=== PATIENT | female | born 1945 | race Caucasian/White ===

== ENCOUNTER 2022-02-08 17:09 | Inpatient (IN) | payer OTHER, MEDICARE ==
[~2022-02-08] VITALS: Ht 154.9 cm; Wt 93.0 kg
[2022-02-08] MEDS ORDERED: NS 500 ML IV ONE (17:25)
[2022-02-08 17:35] LABS: MEAN CORPUSCULAR HEMOGLOBIN 32.4 pg (27.0-33.0); MEAN CORPUSCULAR HGB CONC 32.4 g/dl (32.0-36.5); RED BLOOD COUNT 1.73 10^6/uL (4.00-5.40); WHITE BLOOD COUNT 11.1 10^3/uL (4.0-10.0)
[2022-02-08 17:36] LABS: BASO % 0.2 % (0.0-1.0); EOS # 0.2 10^3/uL (0.0-0.5); EOS % 1.5 % (0.0-3.0); LYMPH # 1.3 10^3/uL (1.5-5.0); LYMPH % 11.6 % (24.0-44.0); MONO # 0.6 10^3/uL (0.0-0.8); MONO % 5.3 % (2.0-8.0); NEUTROPHILS # 8.8 10^3/uL (1.5-8.5); NEUTROPHILS % 79.2 % (36.0-66.0); PLATELET COUNT, AUTOMATED 179 10^3/uL (150-450)
[2022-02-08 17:39] LABS: HEMATOCRIT 17.3 % (36.0-47.0); HEMOGLOBIN 5.6 g/dl (12.0-15.5)
[2022-02-08] MEDS ORDERED: ISOVUE-370 76% 100ML VIAL As Ordered ONE (17:46)
[2022-02-08 17:47] LABS: INR 1.93; PROTHROMBIN TIME 22.5 SECONDS (12.7-14.5)
[2022-02-08 17:48] LABS: PARTIAL THROMBOPLASTIN TIME 36.4 SECONDS (25.9-37.0)
[2022-02-08] MEDS ORDERED: TRANEXAMIC ACID INJection 1,000 MG in NS 100 ML IV ONE ×2 (17:50→20:00)
[2022-02-08 17:53] LABS: ABG BASE EXCESS -2.6 (-2.0-2.0); ABG HCO3 21.2 MEQ/L (22.0-26.0); ABG O2 SATURATION 97.4 % (95.0-99.0); ABG PARTIAL PRESSURE CO2 32.8 mmHg (35.0-45.0); ABG PARTIAL PRESSURE O2 98.9 mmHg (75.0-100.0); ABG STANDARD HCO3 22.3 MEQ/L (22.0-26.0); ABG TOTAL CO2 22.2 MEQ/L (23.0-31.0); ABG pH (ARTERIAL) 7.428 UNITS (7.350-7.450)
[2022-02-08] MEDS ORDERED: CALCIUM CHLORIDE 10% 1 GM/10 ML SYR IV ONE (17:55)
[2022-02-08 17:59] LABS: CK-MB VALUE MASS 1.4 NG/ML (<3.6); MB/CK RELATIVE INDEX 2.15 (< OR =4)
[2022-02-08 18:12] LABS: ALBUMIN 1.1 GM/DL (3.2-5.2); ALT/SGPT 8 U/L (12-78); AMYLASE 15 U/L (25-115); BILIRUBIN,DIRECT < 0.1 MG/DL (0.0-0.2); BILIRUBIN,TOTAL < 0.1 MG/DL (0.2-1.0); BLOOD UREA NITROGEN 9 MG/DL (7-18); CALCIUM LEVEL < 5.0 MG/DL (8.8-10.2); CARBON DIOXIDE LEVEL 9 MEQ/L (21-32); CHLORIDE LEVEL 138 MEQ/L (98-107); CREATININE FOR GFR < 0.15 MG/DL (0.55-1.30); ETHYL ALCOHOL (ETHANOL) < 0.003 % (0.000-0.010); GLOMERULAR FILTRATION RATE > 60.0 (>39); GLUCOSE, FASTING 76 MG/DL (70-100); LIPASE 75 U/L (73-393); POTASSIUM SERUM 1.7 MEQ/L (3.5-5.1); SODIUM LEVEL 157 MEQ/L (136-145); TOTAL PROTEIN 2.1 GM/DL (6.4-8.2)
[2022-02-08 18:29] LABS: BASO % 0.2 % (0.0-1.0); EOS # 0.2 10^3/uL (0.0-0.5); EOS % 1.1 % (0.0-3.0); HEMATOCRIT 26.6 % (36.0-47.0); LYMPH # 0.9 10^3/uL (1.5-5.0); LYMPH % 6.1 % (24.0-44.0); MEAN CORPUSCULAR HEMOGLOBIN 31.6 pg (27.0-33.0); MEAN CORPUSCULAR HGB CONC 32.3 g/dl (32.0-36.5); MEAN CORPUSCULAR VOLUME 97.8 fl (80.0-96.0); MONO # 0.8 10^3/uL (0.0-0.8); MONO % 5.5 % (2.0-8.0); NEUTROPHILS # 12.9 10^3/uL (1.5-8.5); NEUTROPHILS % 85.1 % (36.0-66.0); PLATELET COUNT, AUTOMATED 215 10^3/uL (150-450); RED BLOOD COUNT 2.72 10^6/uL (4.00-5.40); WHITE BLOOD COUNT 15.1 10^3/uL (4.0-10.0)
[2022-02-08 18:32] LABS: RSV AMPLIFICATION NEGATIVE (NEGATIVE)
[2022-02-08 18:35] LABS: HEMOGLOBIN 8.6 g/dl (12.0-15.5)
[2022-02-08 18:48] LABS: CALCIUM LEVEL 7.3 MG/DL (8.8-10.2); CREATININE FOR GFR 0.99 MG/DL (0.55-1.30); GLOMERULAR FILTRATION RATE 58.1 (>39); POTASSIUM SERUM 3.7 MEQ/L (3.5-5.1)
[2022-02-08 19:00] VITALS: BP 103/57
[2022-02-08 19:16] VITALS: BP 103/50
[2022-02-08 19:25] VITALS: BP 103/50
[2022-02-08] MEDS ORDERED: fentaNYL 100 MCG/2 ML INJECTION IV ONE (20:25)
[2022-02-08] MEDS ORDERED: BOOSTRIX/ADACEL VACCINE (DIPHTH/PERTUSS/ACELL/TETANUS) 0.5ML SYR IM.IMMUN ONE (20:25)
[2022-02-08] MEDS ORDERED: ONDANSETRON 4MG 2ML VIAL IV ONE (20:25)
[2022-02-08] MEDS ORDERED: ACETAMINOPHEN TAB 650MG DOSE (2X325MG) PO PRN (21:20)
[2022-02-08] MEDS ORDERED: ONDANSETRON 4MG 2ML VIAL IV PRN (21:20)
[2022-02-08] MEDS ORDERED: KETOROLAC 30 MG/ML 1ML VIAL IV PRN (21:20)
[2022-02-08] MEDS ORDERED: MORPHINE 2 MG/ML 1ML VIAL IV PRN (21:20)
[2022-02-08] MEDS ORDERED: NORCO, ANEXSIA 5/325MG TABLET (HYDROcodone/ACETAMINOPHEN) PO PRN (21:20)
[2022-02-08] MEDS ORDERED: MORPHINE 4 MG/ML 1ML VIAL/SYRINGE IV PRN (21:20)
[2022-02-08] MEDS ORDERED: FAMO1TAB11 PO (21:46)
[2022-02-08] MEDS ORDERED: METR0.7533 TOP (21:46)
[2022-02-08] MEDS ORDERED: FERR150C PO (21:46)
[2022-02-08] MEDS ORDERED: CARB1TAB20 PO (21:46)
[2022-02-08] MEDS ORDERED: CLOP75TA2 PO (21:46)
[2022-02-08] MEDS ORDERED: METH4PACK PO (21:46)
[2022-02-08] MEDS ORDERED: FLUTISP (21:46)
[2022-02-08] MEDS ORDERED: med rec comment (21:46)
[2022-02-08] MEDS ORDERED: HOME MED LIST COMPLETE! XX SCH (21:50)
[2022-02-08 22:33] LABS: HEMATOCRIT 28.7 % (36.0-47.0); HEMOGLOBIN 9.5 g/dl (12.0-15.5); MEAN CORPUSCULAR HEMOGLOBIN 30.2 pg (27.0-33.0); MEAN CORPUSCULAR HGB CONC 33.1 g/dl (32.0-36.5); MEAN CORPUSCULAR VOLUME 91.1 fl (80.0-96.0); PLATELET COUNT, AUTOMATED 246 10^3/uL (150-450); RED BLOOD COUNT 3.15 10^6/uL (4.00-5.40)
[2022-02-08 23:24] VITALS: BP 121/60
[2022-02-09] MEDS ORDERED: UNRESOLVED CLARIFICATION ENTRY XX SCH (00:01)
[2022-02-09] MEDS ORDERED: PANTOPRAZOLE 40MG VIAL IV SCH (09:00)
[2022-02-09] MEDS ORDERED: SENOKOT S TAB PO SCH (09:00)
[2022-02-09] MEDS ORDERED: ENOXAPARIN 40MG/0.4ML SYRINGE (J1650 PER 10MG) SC SCH (09:00)
== END 2022-02-08 23:40 | disposition short-term general hospital (02) | DRG 663 ==
LOC: EDBD 17:09 → M ED 17:09 → M ED INP 21:18 → ENRESERV 21:44
PROVIDERS: ADMIT Surgery; ATTEND Surgery
PROC: 30233N1 Transfusion of Nonautologous Red Blood Cells into Peripheral Vein, Percutaneous Approach (ICD-10-PCS; principal; 2022-02-08)
PROC: 30233R1 Transfusion of Nonautologous Platelets into Peripheral Vein, Percutaneous Approach (ICD-10-PCS; 2022-02-08)
DX: D62 Acute posthemorrhagic anemia (principal); R57.8 Other shock; I95.9 Hypotension, unspecified; G20 Parkinson's disease; S22.22XA Fracture of body of sternum, initial encounter for closed fracture; S22.41XA Multiple fractures of ribs, right side, initial encounter for closed fracture; G40.909 Epilepsy, unspecified, not intractable, without status epilepticus; S20.211A Contusion of right front wall of thorax, initial encounter; S20.01XA Contusion of right breast, initial encounter; G47.33 Obstructive sleep apnea (adult) (pediatric); S30.1XXA Contusion of abdominal wall, initial encounter; E04.1 Nontoxic single thyroid nodule; R58 Hemorrhage, not elsewhere classified; K44.9 Diaphragmatic hernia without obstruction or gangrene; I25.2 Old myocardial infarction; S82.851A Displaced trimalleolar fracture of right lower leg, initial encounter for closed fracture; V47.5XXA Car driver injured in collision with fixed or stationary object in traffic accident, initial encounter; Y92.411 Interstate highway as the place of occurrence of the external cause; Y93.89 Activity, other specified; Y99.8 Other external cause status; Z86.73 Personal history of transient ischemic attack (TIA), and cerebral infarction without residual deficits